=== PATIENT | female | born 1970 | race Caucasian/White ===

== ENCOUNTER 2017-08-02 15:59 | Emergency (ER) | payer SELFPAY ==
[2017-08-02 16:08] VITALS: BP 131/88
--- NOTE | 2017-08-02 16:38 | ER Document Report ---
HPI - HPI Patient complains to provider of: toothache Onset: Other - 4 days Onset/Duration: Persistent Quality of pain: Achy Pain Level: 4 Context: pt presents c/o dental pain for the past 4 days. Patient complains of subtle swelling to right lower jaw area. Patient denies any fever. Associated Symptoms: Other - Dental pain. denies: Fever Exacerbated by: Denies Relieved by: Denies Similar symptoms previously: Yes Recently seen / treated by doctor: No - ROS ROS below otherwise negative: Yes Systems Reviewed and Negative: Yes All other systems reviewed and negative - EENT Notes: Dental pain - CARDIOVASCULAR Cardiovascular: DENIES: Chest pain - REPRODUCTIVE LMP: 07/29/17 - DERM Skin Color: Normal Skin Problems: None Past Medical History - General Information source: Patient - Social History Smoking Status: Current Every Day Smoker Chew tobacco use (# tins/day): No Frequency of alcohol use: None Drug Abuse: None Occupation: None Family History: CAD, CVA, DM, Hyperlipidemia, Hypertension, Malignancy Patient has suicidal ideation: No Pulmonary Medical History: Reports: Hx Asthma Neurological Medical History: Reports: Hx Migraine Renal/ Medical History: Denies: Hx Peritoneal Dialysis Musculoskeltal Medical History: Reports Hx Arthritis, Reports Hx Musculoskeletal Deformity, Reports Hx Musculoskeletal Trauma Psychiatric Medical History: Reports: Hx Bipolar Disorder Past Surgical History: Reports: Hx Section - Immunizations Immunizations up to date: No Hx Diphtheria, Pertussis, Tetanus Vaccination: No Vertical Provider Document - CONSTITUTIONAL Agree With Documented VS: Yes Exam Limitations: No Limitations General Appearance: WD/WN, No Apparent Distress - INFECTION CONTROL TRAVEL OUTSIDE OF THE [place] IN LAST 30 DAYS: No - HEENT HEENT: Atraumatic, Normocephalic. negative: Pharyngeal Exudate, Pharyngeal Tenderness, Pharyngeal Erythema, Tympanic Membrane Red, Tympanic Membrane Bulging Mouth Diagram: 1 - tenderness, decay 2 - tenderness, decay,no trismus - NECK Neck: Normal Inspection, Supple. negative: Lymphadenopathy-Left, Lymphadenopathy-Right - RESPIRATORY Respiratory: Breath Sounds Normal, No Respiratory Distress O2 Sat by Pulse Oximetry: 99 - CARDIOVASCULAR Cardiovascular: Regular Rate, Regular Rhythm, No Murmur - BACK Back: Normal Inspection - MUSCULOSKELETAL/EXTREMETIES Musculoskeletal/Extremeties: MAEW - NEURO Level of Consciousness: Awake, Alert, Appropriate Motor/Sensory: No Motor Deficit - DERM Integumentary: Warm, Dry, No Rash Course - Vital Signs Vital signs: Temp Pulse Resp BP Pulse Ox 97.9 F 71 18 131/88 H 99 08/02/17 16:06 08/02/17 16:06 08/02/17 16:06 08/02/17 16:06 08/02/17 16:06 Discharge - Discharge Clinical Impression: Pain, dental Condition: Stable Disposition: HOME, SELF-CARE Instructions: Oral Narcotic Medication ([facility]), Penicillin V K ([facility]), Toothache ( [facility]) Additional Instructions: Return immediately for any new or worsening symptoms Followup with your dental care provider, call tomorrow to make a followup appointment Prescriptions: Acetaminophen with Codeine [Acetaminophen-Cod #3 Tablet] 1 each PO Q6 PRN #12 tablet PRN Reason: Naproxen [Naprosyn 250 Nmg Tablet] 1 tab PO BID #14 tablet Penicillin V Potassium [Penicillin Vk 500 mg Tablet] 500 mg PO BID #20 tablet Referrals: [facility] [Provider Group] - Follow up tomorrow
== END 2017-08-02 16:45 | disposition home or self-care (01) ==
LOC: ER 15:59
DX: K02.9 Dental caries, unspecified (principal); K08.89 Other specified disorders of teeth and supporting structures; F17.200 Nicotine dependence, unspecified, uncomplicated; J45.909 Unspecified asthma, uncomplicated
CPT/HCPCS: 99282

== ENCOUNTER → 2019-10-20 | Outpatient (CLI) | payer MEDICAID ==
--- NOTE | 2019-10-20 14:21 | RADIOLOGY REPORT (SQ) ---
EXAM DESCRIPTION: LUMBAR SPINE 2 VIEWS COMPLETED DATE/TIME: 10/20/2019 12:54 pm REASON FOR STUDY: ,OTHER INTERVERTEBRAL DISC DEGENERATION, LUM M70.62 TROCHANTERIC BURSITIS, LEFT H IP M51.36 OTHER INTERVERTEBRAL DISC DEGENERATION, LUMBAR REGION COMPARISON: None. NUMBER OF VIEWS: Two views. TECHNIQUE: AP and lateral radiographic images acquired of the lumbar spine. LIMITATIONS: None. FINDINGS: MINERALIZATION: Normal. SEGMENTATION: There are 5 lumbar-type vertebral bodies. There is no transitional anatomy at the lumb osacral junction. ALIGNMENT: No spondylolisthesis or scoliotic curvature. VERTEBRAE: The lumbar vertebral body heights are preserved. DISCS: The intervertebral disc spaces are preserved. There are anterior endplate osteophytes at L1-L 2 and L4-L5. POSTERIOR ELEMENTS: The L4-L5 and L5-S1 facet joints are sclerotic. HARDWARE: None in the spine. PARASPINAL SOFT TISSUES: Normal. PELVIS: Intact. OTHER: No other finding. IMPRESSION: No acute fracture or malalignment of the lumbar spine. There is mild degenerative spond ylosis and facet arthropathy of the lumbar spine as detailed above. TECHNICAL DOCUMENTATION: JOB ID: [id number] [employer]- All Rights Reserved Reading location - IP/workstation name: [email or web address]
--- NOTE | 2019-10-20 18:00 | RADIOLOGY REPORT (SQ) ---
EXAM DESCRIPTION: HIPS BILATERAL COMPLETED DATE/TIME: 10/20/2019 12:54 pm REASON FOR STUDY: TROCHANTERIC BURSITIS, LEFT HIP,OTHER INTERVERTEBRAL DISC DEGENERATION, LUM M70.62 TROCHANTERIC BURSITIS, LEFT HIP M51.36 OTHER INTERVERTEBRAL DISC DEGENERATION, LUMBAR REGION COMPARISON: None. NUMBER OF VIEWS: Two views TECHNIQUE: AP pelvis and additional frog-leg view of both hips. LIMITATIONS: None. FINDINGS: MINERALIZATION: Normal. HIPS: No acute fracture or dislocation. No worrisome bone lesions. PELVIS AND SACRUM: No acute fracture or dislocation. No worrisome bone lesions. PUBIS AND ISCHIUM: No acute fracture. LOWER LUMBAR SPINE: No significant findings as visualized. SOFT TISSUES: No findings. OTHER: No other significant finding. IMPRESSION: NEGATIVE STUDY OF THE PELVIS AND HIPS. TECHNICAL DOCUMENTATION: JOB ID: [id number] [employer]- All Rights Reserved Reading location - IP/workstation name: [email or web address]
== END ==
LOC: OD 12:30
PROVIDERS: ATTEND Nurse Practitioner Primary Care
DX: M70.62 Trochanteric bursitis, left hip (principal); M51.36 Other intervertebral disc degeneration, lumbar region
CPT/HCPCS: 72100; 73522

== ENCOUNTER 2020-01-22 19:08 | Emergency (ER) | payer MEDICAID ==
[2020-01-22] MEDS ORDERED: HYDROCODONE/ACETAMINOPHEN 5-325 MG TABLET PO ONE (19:42)
--- NOTE | 2020-01-22 20:09 | ER Document Report ---
HPI - HPI Patient complains to provider of: Back pain Time Seen by Provider: 01/22/20 19:38 Onset: Other - 3 days ago Onset/Duration: Persistent Quality of pain: Achy Pain Level: 4 Context: Patient states she fell down some steps 3 days ago injuring her back. Patient complains of low back pain that radiates to the left hip. Patient states that she has had hip pain in the past but it has worsened recently. Patient states that occasionally she will have a shooting pain into the right hip which is not a symptom that she has had in the past. Patient denies any urinary retention or incontinence symptoms. Associated Symptoms: Other - Low back pain, bilateral hip pain. denies: Fever Exacerbated by: Standing, Movement, Walking Relieved by: Denies Similar symptoms previously: Yes Recently seen / treated by doctor: No - ROS ROS below otherwise negative: Yes Systems Reviewed and Negative: Yes All other systems reviewed and negative - CONSTITUTIONAL Constitutional: DENIES: Fever - NEURO Neurology: DENIES: Weakness - GASTROINTESTINAL Gastrointestinal: DENIES: Nausea, Patient vomiting - REPRODUCTIVE Reproductive: DENIES: : - MUSCULOSKELETAL Musculoskeletal: REPORTS: Extremity pain, Back Pain. DENIES: Neck Pain - DERM Skin Color: Normal Skin Problems: None Past Medical History - General Information source: Patient - Social History Smoking Status: Current Every Day Smoker Frequency of alcohol use: None Drug Abuse: None Occupation: None Family History: CAD, CVA, DM, Hyperlipidemia, Hypertension, Malignancy Patient has suicidal ideation: No Patient has homicidal ideation: No Pulmonary Medical History: Reports: Hx Asthma Neurological Medical History: Reports: Hx Migraine Renal/ Medical History: Denies: Hx Peritoneal Dialysis Musculoskeletal Medical History: Reports Hx Arthritis, Reports Hx Musculoskeletal Deformity, Reports Hx Musculoskeletal Trauma Psychiatric Medical History: Reports: Hx Bipolar Disorder Past Surgical History: Reports: Hx Section - Immunizations Immunizations up to date: No Hx Diphtheria, Pertussis, Tetanus Vaccination: No Vertical Provider Document - CONSTITUTIONAL Agree With Documented VS: Yes Exam Limitations: No Limitations General Appearance: WD/WN, No Apparent Distress Notes: PHYSICAL EXAMINATION: GENERAL: Well-appearing, well-nourished and in no acute distress. HEAD: Atraumatic, normocephalic. EYES: sclera clear, anicteric, conjunctiva are normal. ENT: nares patent, Moist mucous membranes. NECK: Normal range of motion, supple no lymphadenopathy LUNGS: respirations unlabored HEART: Regular rate and rhythm without murmurs EXTREMITIES: Left posterior hip tenderness with palpation, no deformity or dislocation, right hip nontender at this time, normal range of motion, no pitting or edema. Gait normal, pt ambulates without difficulty BACK: Lower lumbar paraspinal tenderness, no midline tenderness, no deformities or step-offs. No CVA tenderness. NEUROLOGICAL: Cranial nerves grossly intact. Normal speech, normal gait. No saddle anesthesia. PSYCH: Normal mood, normal affect. SKIN: Warm, Dry, normal turgor, no rashes or lesions noted. - INFECTION CONTROL TRAVEL OUTSIDE OF THE [place] IN LAST 30 DAYS: No Course - Re-evaluation Re-evalutation: 01/22/20 20:37 The patient presents with low back pain without signs of spinal cord compression, cauda equina syndrome, infection, aneurysm, or other serious etio logy. The patient is neurologically intact. Given the extremely risk of these diagnoses further testing and evaluation for these possibilities does not appear to be indicated at this time. Patient has been instructed to return if the symptoms worsen or change in any way. - Vital Signs Vital signs: Temp Pulse Resp BP Pulse Ox 98.1 F 91 18 123/83 100 01/22/20 19:23 01/22/20 19:23 01/22/20 19:23 01/22/20 19:23 01/22/20 19:23 - Diagnostic Test Radiology reviewed: Reports reviewed Discharge - Discharge Clinical Impression: Bilateral hip pain Fall Qualifiers: Encounter type: initial encounter Qualified Code(s): W19.XXXA - Unspecified fall, initial encounter Low back pain Qualifiers: Chronicity: chronic Back pain laterality: bilateral Sciatica presence: unspecified whether sciatica present Qualified Code(s): M54.5 - Low back pain Condition: Stable Disposition: HOME, SELF-CARE Instructions: Ice Packs ([facility]), Low Back Pain ([facility]), Sprain ([facility]), Oral Narcotic Medication ([facility]) Additional Instructions: Return immediately for any new or worsening symptoms Followup with your primary care provider, call tomorrow to make a followup appointment Follow-up with orthopedics for any persistent pain or problems Prescriptions: Lidocaine [Lidoderm 5% (700 mg) Transdermal Patch] 1 patch TP DAILY PRN #10 adh..patch PRN Reason: Naproxen [Naprosyn 250 Nmg Tablet] 1 tab PO BID #14 tablet Hydrocodone/Acetaminophen [[place] 5-325 mg Tablet] 1 tab PO Q6 PRN #15 tablet PRN Reason: Referrals: JARED ROSS FNP-C [Primary Care Provider] - Follow up as needed [facility] [Provider Group] - Follow up as needed
--- NOTE | 2020-01-22 20:24 | RADIOLOGY REPORT (SQ) ---
CLINICAL INDICATION: fall, hip, back pain. . TECHNIQUE: Single view(s) were obtained of the right hip. Single view(s) were obtained of the left hip. Single AP view of the pelvis. COMPARISON: None. FINDINGS: Right: No acute displaced fracture is identified of the hip. Alignment appears anatomic. Mild age-appropriate osteoarthritis. Surrounding soft tissues are unremarkable. Left: No acute displaced fracture is identified of the hip. Alignment appears anatomic. Mild age-appropriate osteoarthritis. Mild vascular calcification. IMPRESSION: No evidence of acute displaced fracture of either hip. Lumbar spine dictated separately
--- NOTE | 2020-01-22 20:25 | RADIOLOGY REPORT (SQ) ---
INDICATION: fall, hip, back pain. TECHNIQUE: 5 view(s) of the lumbar spine. Both obliques COMPARISON: None FINDINGS: No evidence of acute displaced fracture. Shallow dextroconvex curvature, suspicious for scoliosis.. Osteoarthritis in a pattern consistent with altered mechanics. Vertebral body heights are well-maintained. After calcification. No anteroposterior subluxation. IMPRESSION: No evidence of acute displaced fracture of the lumbar spine.
[2020-01-22] MEDS ORDERED: LIDOCAINE 5% (700 MG) TRANSDERMAL ADH..PATCH TP ONE (20:36)
[2020-01-22 20:48] VITALS: BP 114/79
== END 2020-01-22 20:49 | disposition home or self-care (01) ==
LOC: ER 19:08
DX: M25.552 Pain in left hip (principal); M25.551 Pain in right hip; M54.5 Low back pain; W10.9XXA Fall (on) (from) unspecified stairs and steps, initial encounter; F17.200 Nicotine dependence, unspecified, uncomplicated
CPT/HCPCS: 99283; 72110; 73522; J3490